=== PATIENT | male | born 1965 | race Caucasian/White ===

== ENCOUNTER 2016-12-07 16:56 | Emergency (ER) | payer SELFPAY ==
[2016-12-07 17:39] VITALS: BP 140/85; PULSE 93; RESP 18; TEMP 97.1
[2016-12-07] MEDS ORDERED: KETOROLAC 60 MG/2 ML VIAL IM STA (18:07)
[2016-12-07] MEDS ORDERED: methylPREDNISolone SOD SUCCI 125 MG/2 ML VIAL IM STA (18:07)
--- NOTE | 2016-12-07 18:07 | ED ---
Extremity Problem HPI - General Chief complaint: Extremity Problem,Nontraumatic Stated complaint: rt foot pain and swelling, spreading up to calf Time Seen by Provider: 12/07/16 17:42 Source: patient, RN notes reviewed Mode of arrival: ambulatory Limitations: no limitations - History of Present Illness Initial comments: 51 yo female presents emergency department chief complaint of right first toe pain. Patient states her last week or so he's had this redness and pain to the right toe. Patient states will get red and swollen and worse to walk on. Patient states he does have a high risk any diarrhea. Patient denies any fever chills this. Patient states it is worse at night. Patient states icing throughout the day doesn't seem to help. Patient been taking Motrin has not been improving. They were concerned it may be gout. He states he did use like an acid cream on it the did pull back the skin is not know if that made it worse or not. Patient denies any health problems. Patient states she's never had anything like this before.Patient denies any recent fever, chills, shortness of breath, chest pain, back pain, abdominal pain, nausea vomiting, numbness or tingling, dysuria or hematuria, constipation or diarrhea, headaches or visual changes, or any other current symptoms. - Related Data Previous Rx's Medication Instructions Recorded Cephalexin [Keflex] 500 mg PO Q6HR #40 cap 12/07/16 predniSONE 50 mg PO DAILY #5 tab 12/07/16 Allergies Allergy/AdvReac Type Severity Reaction Status Date / Time No Known Allergies Allergy Verified 12/07/16 17:40 Review of Systems ROS Statement: Those systems with pertinent positive or pertinent negative responses have been documented in the HPI. ROS Other: All systems not noted in ROS Statement are negative. Past Medical History Past Medical History: No Reported History History of Any Multi-Drug Resistant Organisms: None Reported Past Surgical History: Orthopedic Surgery Past Psychological History: No Psychological Hx Reported Smoking Status: Current every day smoker Past Alcohol Use History: Occasional Past Drug Use History: None Reported General Exam - General Exam Comments Initial Comments: General: The patient is awake and alert, in no distress, and does not appear acutely ill. Neck: The neck is supple, there is no tenderness or JVD. Cardiovascular: There is a regular rate and rhythm. No murmur, rub or gallop is appreciated. Respiratory: Lungs are clear to auscultation, respirations are non-labored, breath sounds are equal. No wheezes, stridor, rales, or rhonchi. Musculoskeletal: Sensation to have 2+ pulses throughout right lower extremity. Frontal motion of right ankle and right foot. Patient does have pain with range of motion of the right big toe. There does appear to be a open sore to the right toe however he states this is from trying to treat the injury. Patient states there is no other pain. Patient has full range of motion of the right ankle there is no redness or swelling noted. Neurological: CN II-XII intact, There are no obvious motor or sensory deficits. Coordination appears grossly intact. Speech is normal. Skin: Skin is warm and dry and no rashes or lesions are noted. Psychiatric: Normal mood and affect. Limitations: no limitations Course Vital Signs 12/07/16 17:32 Temperature 97.1 F L Pulse Rate 93 Respiratory 18 Rate Blood Pressure 140/85 O2 Sat by Pulse 98 Oximetry Medical Decision Making - Medical Decision Making 51-year-old male presents for right toe pain. This we discussed it could be gout versus a cellulitis. This time we discussed was her metabolic Keflex as well as steroids. We discussed continuing Motrin and return parameters and follow-up. We discussed other etiologies and all the patient's questions. He stated he understood and agreement with the plan. Discharge. Disposition Clinical Impression: Gout involving toe of right foot, Cellulitis of toe of right foot Disposition: HOME SELF-CARE Condition: Stable Instructions: Gout (ED), Cellulitis (ED) Additional Instructions: Please use medication as discussed. Please follow up with family doctor if symptoms have not improved over the next two days. Please return to the emergency room if your symptoms increase or worsen or for any other concerns. Prescriptions: Cephalexin [Keflex] 500 mg PO Q6HR #40 cap predniSONE 50 mg PO DAILY #5 tab Referrals: None,Stated [Primary Care Provider] - 1-2 days Eloise Sheikh MD [STAFF PHYSICIAN] - 1-2 days Time of Disposition: 18:06
== END 2016-12-07 18:24 | disposition home or self-care (01) ==
LOC: EC 16:56
DX: M10.9 Gout, unspecified (principal); L03.031 Cellulitis of right toe; F17.200 Nicotine dependence, unspecified, uncomplicated; Z98.890 Other specified postprocedural states
CPT/HCPCS: 99283 ×2; 96372 ×3; J2930; J1885

== ENCOUNTER 2022-01-08 10:51 | Emergency (ER) | payer BC ==
[2022-01-08] MEDS ORDERED: SODIUM CHLORIDE 0.9% 1,000 ML IV STA (11:34)
[2022-01-08 12:12] LABS: Basophils % (A) 1 %; Eosinophils # (A) 0.3 k/uL (0-0.7); Eosinophils % (A) 3 %; HCT 44.7 % (39.0-53.0); HGB 16.2 gm/dL (13.0-17.5); Lymphocytes # (A) 1.9 k/uL (1.0-4.8); Lymphocytes % (A) 23 %; MCH 35.2 pg (25.0-35.0); MCHC 36.2 g/dL (31.0-37.0); MCV 97.1 fL (80.0-100.0); Monocytes # (A) 0.3 k/uL (0-1.0); Monocytes % (A) 4 %; Neutrophils # (A) 5.8 k/uL (1.3-7.7); Neutrophils % (A) 69 %; Platelet Count 193 k/uL (150-450); RBC 4.61 m/uL (4.30-5.90); RDW 12.5 % (11.5-15.5); WBC 8.5 k/uL (3.8-10.6)
[2022-01-08 12:19] LABS: ALT 77 U/L (4-49); AST 52 U/L (17-59); African American GFR (CKD) >90 (>60 ml/min/1.73 sqM); Albumin 4.4 g/dL (3.5-5.0); Alkaline Phosphatase 74 U/L (38-126); Anion Gap 7 mmol/L; Blood Urea Nitrogen 16 mg/dL (9-20); Calcium 9.1 mg/dL (8.4-10.2); Carbon Dioxide 28 mmol/L (22-30); Chloride 107 mmol/L (98-107); Glucose 123 mg/dL (74-99); Magnesium 1.9 mg/dL (1.6-2.3); Non-African American GFR(CKD) >90 (>60 ml/min/1.73 sqM); Potassium 3.6 mmol/L (3.5-5.1); Sodium 142 mmol/L (137-145); Total Protein 7.1 g/dL (6.3-8.2)
[2022-01-08 12:20] LABS: Partial Thromboplastin Time 22.6 sec (22.0-30.0); Prothrombin Time 11.2 sec (9.0-12.0)
--- NOTE | 2022-01-08 12:28 | XR ---
EXAMINATION TYPE: XR chest 2V DATE OF EXAM: 01/08/2022 COMPARISON: Chest x-ray February 10, 2011. HISTORY: Generalized weakness. TECHNIQUE: Frontal and lateral views of the chest are obtained. FINDINGS: There is mild chronic parenchymal change bilaterally without suspicious focal air space op acity, pleural effusion, or pneumothorax seen. The cardiac silhouette size is stable and within norm al limits. Multilevel spurring in the thoracic spine. IMPRESSION: No acute process. No significant change from prior.
--- NOTE | 2022-01-08 12:33 | CT ---
EXAMINATION TYPE: CT soft tissue neck w con DATE OF EXAM: 01/08/2022 12:20 PM COMPARISON: None HISTORY: right neck mass CT DLP: 348 mGycm Automated exposure control for dose reduction was used. CONTRAST: CT scan of the neck is performed following with IV Contrast, patient injected with 100ml mL of Isovue 300. Axial images are obtained, coronal and sagittal reformatted images are reviewed. FINDINGS: There are calcifications along the pharyngeal tonsils consistent with chronic infection Airway: Some probable retained secretions present in the posterior lateral trachea. Parotid/submandibular glands: No gross abnormality seen. Carotid/Vascular Structures: Patent, vertebral arteries are codominant, 3 super aortic branch vessels are present, mild atheromatous changes are present along the common carotid arteries Osseous Structures: Multilevel spondylosis with loss of disc height, multilevel uncovertebral joint h ypertrophy, facet arthropathy, foraminal encroachment Other: No overlying marker at the site of any clinical abnormality. Some skin thickening is present, increased subcutaneous fat soft tissue into the mandible. Multiple teeth are missing. The epiglottis is unremarkable. IMPRESSION: Correlate for possible cellulitis. Degenerative disc disease. Probable retained secretio ns. No discrete mass as described.
[2022-01-08] MEDS ORDERED: MORPHINE SULFATE 4 MG/ML SYRINGE IVP STA (12:58)
[2022-01-08 13:08] VITALS: RESP 16
[2022-01-08 13:46] LABS: Appearance,Urine Clear (Clear); Bilirubin,Urine Negative (Negative); Blood,Urine Trace (Negative); Calcium Oxalate Crystals,Urine Rare /hpf; Color,Urine Light Yellow; Glucose,Urine (UA) Negative (Negative); Ketones,Urine Negative (Negative); Leukocyte Esterase,Urine Moderate (Negative); Mucus,Urine Rare /hpf; Nitrite,Urine Negative (Negative); PH, Urine 6.5 (5.0-8.0); Protein,Urine Negative (Negative); RBC,Urine 8 /hpf (0-5); Squamous Epithelial Cell,Urine <1 /hpf (0-4); Urobilinogen,Urine <2.0 mg/dL (<2.0); WBC,Urine 15 /hpf (0-5)
[2022-01-08 13:48] LABS: Specific Gravity,Urine >1.050 (1.001-1.035)
[2022-01-08] MEDS ORDERED: cefTRIAXone IN SWFI 1,000 MG/10 ML SYRINGE IVP STA (14:23)
--- NOTE | 2022-01-08 14:23 | ED ---
General Adult HPI - General Chief complaint: Weakness Stated complaint: Hand numbnes/Neck & Shoulder pain Time Seen by Provider: 01/08/22 11:22 Source: patient, RN notes reviewed Mode of arrival: ambulatory Limitations: no limitations - History of Present Illness Initial comments: 56-year-old male presents emergency Department chief complaint of recent s tabilized, infection, arm and neck pain. Patient states that he has been dealing with infection in which she was states he was diagnosed with multiple cellulitis in [place]. Patient states her since he's been having ongoing weakness, joint pain, headaches night sweats. Patient states does not feel well. Patient states she still has an area of swelling on the right service neck, right hand. He states is very weak to the touch. Patient denies any skin changes he states it was red and swollen prior. Patient does not have current PCP. Patient denies any GI symptoms. - Related Data Home Medications Medication Instructions Recorded Confirmed Ibuprofen [Advil] 800 mg PO Q6H PRN 01/08/22 01/08/22 Previous Rx's Medication Instructions Recorded Cephalexin [Keflex] 500 mg PO Q6HR #40 cap 01/08/22 Sulfamethox-Tmp 800-160Mg [Bactrim 1 each PO Q12HR #20 tab 01/08/22 Ds] Allergies Allergy/AdvReac Type Severity Reaction Status Date / Time No Known Allergies Allergy Verified 01/08/22 12:15 Review of Systems ROS Statement: Those systems with pertinent positive or pertinent negative responses have been documented in the HPI. ROS Other: All systems not noted in ROS Statement are negative. Past Medical History Past Medical History: No Reported History Additional Past Medical History / Comment(s): Cellulitis right arm. History of Any Multi-Drug Resistant Organisms: None Reported Past Surgical History: Orthopedic Surgery Past Psychological History: No Psychological Hx Reported Smoking Status: Current every day smoker Past Alcohol Use History: Occasional Past Drug Use History: None Reported General Exam Limitations: no limitations General appearance: alert, in no apparent distress Head exam: Present: atraumatic, normocephalic, normal inspection Eye exam: Present: normal appearance, PERRL, EOMI. Absent: scleral icterus, conjunctival injection, periorbital swelling ENT exam: Present: normal exam, normal oropharynx, mucous membranes moist, TM's normal bilaterally Neck exam: Present: tenderness (Mild swelling to the right side of the neck). Absent: normal inspection, meningismus, lymphadenopathy Respiratory exam: Present: normal lung sounds bilaterally. Absent: respiratory distress, wheezes, rales, rhonchi, stridor Cardiovascular Exam: Present: regular rate, normal rhythm, normal heart sounds. Absent: systolic murmur, diastolic murmur, rubs, gallop, clicks Extremities exam: Present: other (Right hand there is swelling at the metacarpal region, mild tenderness) Neurological exam: Present: alert, oriented X3, CN II-XII intact, reflexes normal. Absent: motor sensory deficit Course Vital Signs 01/08/22 01/08/22 10:55 13:06 Temperature 97 F L Pulse Rate 82 67 Respiratory 18 16 Rate Blood Pressure 145/93 164/104 O2 Sat by Pulse 98 99 Oximetry Medical Decision Making - Medical Decision Making Patient CT shows evidence of cellulitic changes there is no formation of abscess or mass patient was further treated but this may be residual aspect. Patient's urinalysis shows evidence of urinary tract infection. I did add on Lyme titers concerning for his symptoms possible underlying infectious disease issue. Patient will follow-up with Dr. Kevin patient was started on Keflex and Bactrim. - Lab Data Result diagrams: 01/08/22 11:58 01/08/22 11:58 Lab Results 01/08/22 01/08/22 01/08/22 Range/Units 11:58 11:58 11:58 WBC 8.5 (3.8-10.6) k/uL RBC 4.61 (4.30-5.90) m/uL Hgb 16.2 (13.0-17.5) gm/dL Hct 44.7 (39.0-53.0) % MCV 97.1 (80.0-100.0) fL MCH 35.2 H (25.0-35.0) pg MCHC 36.2 (31.0-37.0) g/dL RDW 12.5 (11.5-15.5) % Plt Count 193 (150-450) k/uL MPV 7.0 Neutrophils % 69 % Lymphocytes % 23 % Monocytes % 4 % Eosinophils % 3 % Basophils % 1 % Neutrophils # 5.8 (1.3-7.7) k/uL Lymphocytes # 1.9 (1.0-4.8) k/uL Monocytes # 0.3 (0-1.0) k/uL Eosinophils # 0.3 (0-0.7) k/uL Basophils # 0.0 (0-0.2) k/uL PT 11.2 (9.0-12.0) sec INR 1.0 (<1.2) APTT 22.6 (22.0-30.0) sec Sodium 142 (137-145) mmol/L Potassium 3.6 (3.5-5.1) mmol/L Chloride 107 (98-107) mmol/L Carbon Dioxide 28 (22-30) mmol/L Anion Gap 7 mmol/L BUN 16 (9-20) mg/dL Creatinine 0.60 L (0.66-1.25) mg/dL Est GFR (CKD-EPI)AfAm >90 (>60 ml/min/1.73 sqM) Est GFR (CKD-EPI)NonAf >90 (>60 ml/min/1.73 sqM) Glucose 123 H (74-99) mg/dL Plasma Lactic Acid Tye (0.7-2.0) mmol/L Calcium 9.1 (8.4-10.2) mg/dL Magnesium 1.9 (1.6-2.3) mg/dL Total Bilirubin 1.0 (0.2-1.3) mg/dL AST 52 (17-59) U/L ALT 77 H (4-49) U/L Alkaline Phosphatase 74 (38-126) U/L Troponin I (0.000-0.034) ng/mL Total Protein 7.1 (6.3-8.2) g/dL Albumin 4.4 (3.5-5.0) g/dL Urine Color Urine Appearance (Clear) Urine pH (5.0-8.0) Ur Specific [place] (1.001-1.035) Urine Protein (Negative) Urine Glucose (UA) (Negative) Urine Ketones (Negative) Urine Blood (Negative) Urine Nitrite (Negative) Urine Bilirubin (Negative) Urine Urobilinogen (<2.0) mg/dL Ur Leukocyte Esterase (Negative) Urine RBC (0-5) /hpf Urine WBC (0-5) /hpf Ur Squamous Epith Cells (0-4) /hpf Calcium Oxalate Crystal (None) /hpf Urine Mucus (None) /hpf Heterophile Antibody (Negative) 01/08/22 01/08/22 01/08/22 Range/Units 11:58 11:58 11:58 WBC (3.8-10.6) k/uL RBC (4.30-5.90) m/uL Hgb (13.0-17.5) gm/dL Hct (39.0-53.0) % MCV (80.0-100.0) fL MCH (25.0-35.0) pg MCHC (31.0-37.0) g/dL RDW (11.5-15.5) % Plt Count (150-450) k/uL MPV Neutrophils % % Lymphocytes % % Monocytes % % Eosinophils % % Basophils % % Neutrophils # (1.3-7.7) k/uL Lymphocytes # (1.0-4.8) k/uL Monocytes # (0-1.0) k/uL Eosinophils # (0-0.7) k/uL Basophils # (0-0.2) k/uL PT (9.0-12.0) sec INR (<1.2) APTT (22.0-30.0) sec Sodium (137-145) mmol/L Potassium (3.5-5.1) mmol/L Chloride (98-107) mmol/L Carbon Dioxide (22-30) mmol/L Anion Gap mmol/L BUN (9-20) mg/dL Creatinine (0.66-1.25) mg/dL Est GFR (CKD-EPI)AfAm (>60 ml/min/1.73 sqM) Est GFR (CKD-EPI)NonAf (>60 ml/min/1.73 sqM) Glucose (74-99) mg/dL Plasma Lactic Acid Tye 1.8 (0.7-2.0) mmol/L Calcium (8.4-10.2) mg/dL Magnesium (1.6-2.3) mg/dL Total Bilirubin (0.2-1.3) mg/dL AST (17-59) U/L ALT (4-49) U/L Alkaline Phosphatase (38-126) U/L Troponin I <0.012 (0.000-0.034) ng/mL Total Protein (6.3-8.2) g/dL Albumin (3.5-5.0) g/dL Urine Color Urine Appearance (Clear) Urine pH (5.0-8.0) Ur Specific [place] (1.001-1.035) Urine Protein (Negative) Urine Glucose (UA) (Negative) Urine Ketones (Negative) Urine Blood (Negative) Urine Nitrite (Negative) Urine Bilirubin (Negative) Urine Urobilinogen (<2.0) mg/dL Ur Leukocyte Esterase (Negative) Urine RBC (0-5) /hpf Urine WBC (0-5) /hpf Ur Squamous Epith Cells (0-4) /hpf Calcium Oxalate Crystal (None) /hpf Urine Mucus (None) /hpf Heterophile Antibody Negative (Negative) 01/08/22 Range/Units 13:35 WBC (3.8-10.6) k/uL RBC (4.30-5.90) m/uL Hgb (13.0-17.5) gm/dL Hct (39.0-53.0) % MCV (80.0-100.0) fL MCH (25.0-35.0) pg MCHC (31.0-37.0) g/dL RDW (11.5-15.5) % Plt Count (150-450) k/uL MPV Neutrophils % % Lymphocytes % % Monocytes % % Eosinophils % % Basophils % % Neutrophils # (1.3-7.7) k/uL Lymphocytes # (1.0-4.8) k/uL Monocytes # (0-1.0) k/uL Eosinophils # (0-0.7) k/uL Basophils # (0-0.2) k/uL PT (9.0-12.0) sec INR (<1.2) APTT (22.0-30.0) sec Sodium (137-145) mmol/L Potassium (3.5-5.1) mmol/L Chloride (98-107) mmol/L Carbon Dioxide (22-30) mmol/L Anion Gap mmol/L BUN (9-20) mg/dL Creatinine (0.66-1.25) mg/dL Est GFR (CKD-EPI)AfAm (>60 ml/min/1.73 sqM) Est GFR (CKD-EPI)NonAf (>60 ml/min/1.73 sqM) Glucose (74-99) mg/dL Plasma Lactic Acid Tye (0.7-2.0) mmol/L Calcium (8.4-10.2) mg/dL Magnesium (1.6-2.3) mg/dL Total Bilirubin (0.2-1.3) mg/dL AST (17-59) U/L ALT (4-49) U/L Alkaline Phosphatase (38-126) U/L Troponin I (0.000-0.034) ng/mL Total Protein (6.3-8.2) g/dL Albumin (3.5-5.0) g/dL Urine Color Light Yellow Urine Appearance Clear (Clear) Urine pH 6.5 (5.0-8.0) Ur Specific [place] >1.050 H (1.001-1.035) Urine Protein Negative (Negative) Urine Glucose (UA) Negative (Negative) Urine Ketones Negative (Negative) Urine Blood Trace H (Negative) Urine Nitrite Negative (Negative) Urine Bilirubin Negative (Negative) Urine Urobilinogen <2.0 (<2.0) mg/dL Ur Leukocyte Esterase Moderate H (Negative) Urine RBC 8 H (0-5) /hpf Urine WBC 15 H (0-5) /hpf Ur Squamous Epith Cells <1 (0-4) /hpf Calcium Oxalate Crystal Rare H (None) /hpf Urine Mucus Rare H (None) /hpf Heterophile Antibody (Negative) Disposition Clinical Impression: Cellulitis, Urinary tract infection, Weakness Disposition: HOME SELF-CARE Condition: Stable Instructions (If sedation given, give patient instructions): Cellulitis (ED), Urinary Tract Infection in Men (ED) Additional Instructions: Please return to the Emergency Department if symptoms worsen or any other concerns. Prescriptions: Sulfamethox-Tmp 800-160Mg [Bactrim Ds] 1 each PO Q12HR #20 tab Cephalexin [Keflex] 500 mg PO Q6HR #40 cap Is patient prescribed a controlled substance at d/c from ED?: No Referrals: None,Stated [Primary Care Provider] - 1-2 days Leon Dailey MD [STAFF PHYSICIAN] - 1-2 days Trish Peters MD [REFERRING] - 1-2 days Time of Disposition: 14:22
[2022-01-08] MEDS ORDERED: Acetaminophen-Codeine 300-30mg TAB PO STA (14:48)
[2022-01-08] MEDS ORDERED: ACET/COD 300 MG/30 MG STARTER PACK 6 TAB BTL PO STA (14:53)
[2022-01-08 15:06] VITALS: BP 150/98; PULSE 88; TEMP 98
== END 2022-01-08 15:05 | disposition home or self-care (01) ==
LOC: EC 10:51
DX: N39.0 Urinary tract infection, site not specified (principal); L03.113 Cellulitis of right upper limb; R53.1 Weakness; F17.200 Nicotine dependence, unspecified, uncomplicated
CPT/HCPCS: 36415; 93005; 80053; 83605; 83735; 84484; 85025; 85610; 85730; 86308; 81001; 86618; 87086; 71046; 70491; 99285; 96374; 96375; 96361; J2270; J0696; Q9967

== ENCOUNTER 2022-01-18 08:42 | Emergency (ER) | payer BC ==
[2022-01-18 09:05] VITALS: RESP 20; TEMP 98.5
[2022-01-18] MEDS ORDERED: HYDROcodone/APAP 5-325MG 1 EACH TAB PO STA (10:00)
--- NOTE | 2022-01-18 10:31 | CT ---
EXAMINATION TYPE: CT brain cspine wo con DATE OF EXAM: 01/18/2022 COMPARISON: None HISTORY: tingling Rt arm and fingers, shoulder pain, recent cellulitis of neck CT DLP: 1463.9 mGycm Automated exposure control for dose reduction was used. TECHNIQUE: CT scan of the head and cervical spine are performed without contrast. FINDINGS: There is no acute intracranial hemorrhage, mass effect, or midline shift identified. The ventricles and sulci are within normal limits in size. The globes are intact and the visualized sin uses are clear. Cervical spine is visualized in its entirety from C1 through upper thoracic levels and demonstrates s atisfactory alignment without evidence of acute fracture or dislocation. Prevertebral soft tissue ap pears within normal limits. The C1-C2 articulation is unremarkable. There is advanced degenerative disc disease and osteoarthritic change of facet joints and uncovertebral joints in the mid and lower cervical spine. There is moderate bony neural foraminal encroachment at the C6-7 level on the right a nd at the C3-4 level on the right. IMPRESSION: 1. There is no acute fracture or dislocation evident in the cervical spine. Advanced degenerative marj nges in the mid lower cervical spine. Multilevel bony neural foraminal encroachment on the right as d escribed above. 2. No acute intracranial hemorrhage, mass effect, or midline shift is seen.
--- NOTE | 2022-01-18 10:33 | XR ---
Right clavicle. HISTORY: Pain COMPARISON: None. TECHNIQUE: 2 views right clavicle were obtained. The right clavicle is intact without fracture, cortical disruption or periosteal reaction. There is mild osteoarthritic change of the right AC joint and glenohumeral joint.. IMPRESSION: 1. Mild degenerative change of the right AC joint. 2. No fracture or focal abnormality of the right clavicle.
--- NOTE | 2022-01-18 10:36 | XR ---
Right shoulder. HISTORY: Pain COMPARISON: None. TECHNIQUE: 3 views of the right shoulder were obtained. FINDINGS: There is no fracture, dislocation, or intraosseous abnormality. There is mild osteoarthritic change of the right AC joint and glenohumeral joint. The soft tissues are normal without radiopaque foreign body or abnormal soft tissue calcification. IMPRESSION: 1. No evidence of fracture or dislocation. 2. Mild osteoarthritic change of the right AC joint and right glenohumeral joint.
[2022-01-18 10:46] LABS: Glucose,Whole Blood 133 mg/dL (75-99)
--- NOTE | 2022-01-18 11:36 | ED ---
General Adult HPI - General Chief complaint: Extremity Problem,Nontraumatic Stated complaint: shoulder pain Time Seen by Provider: 01/18/22 09:42 Source: patient, RN notes reviewed, old records reviewed Mode of arrival: ambulatory Limitations: no limitations - History of Present Illness Initial comments: She is a 57 from male who presents with department with 2 primary complaints. One is a somewhat wide-based gait which is been ongoing for the last 1-2 weeks. He also was recently treated for cellulitis in the right neck. Has been having right shoulder pain as well as shooting pain from his right neck down towards his fingertips on the right side. Has not yet followed up with outpatient physicians. As for reevaluation today due to the pain in his right shoulder primarily. Denies any fevers, chills, sick contacts. Denies any neck stiffness. Denies any confusion. Patient's is at bedside. Endorses this. Denies any other acute complaints including chest pain, shortness breath, abdominal pain, nausea, vomiting. Did remotely have a laceration over the dorsal aspect of his right hand which is rinsed out with contaminated water at home which they believe is likely the source of his infection his neck. Presents over concern for continued shoulder pain. States his infection which was erythematous is gone. Is being worked up for Lyme disease outpatient. Presents for further evaluation. Is also endorsing bilateral fingertip numbness which is somewhat chronic. It has been ongoing for a longer period of time compared to the rest of his symptoms. - Related Data Home Medications Medication Instructions Recorded Confirmed Ibuprofen [Advil] 800 mg PO Q6H PRN 01/08/22 01/08/22 Previous Rx's Medication Instructions Recorded Cephalexin [Keflex] 500 mg PO Q6HR #40 cap 01/08/22 Sulfamethox-Tmp 800-160Mg [Bactrim 1 each PO Q12HR #20 tab 01/08/22 Ds] Gabapentin 300 mg PO BID 3 Days #6 cap 01/18/22 HYDROcodone/APAP 5-325MG [[place] 5] 1 each PO Q6HR PRN 3 Days #12 tab 01/18/22 Allergies Allergy/AdvReac Type Severity Reaction Status Date / Time No Known Allergies Allergy Verified 01/18/22 09:06 Review of Systems ROS Statement: Those systems with pertinent positive or pertinent negative responses have been documented in the HPI. ROS Other: All systems not noted in ROS Statement are negative. Past Medical History Past Medical History: No Reported History Additional Past Medical History / Comment(s): Cellulitis right arm. History of Any Multi-Drug Resistant Organisms: None Reported Past Surgical History: Orthopedic Surgery Past Psychological History: No Psychological Hx Reported Smoking Status: Current every day smoker Past Alcohol Use History: Occasional Past Drug Use History: None Reported General Exam - General Exam Comments Initial Comments: General: Appears in no acute distress. HEAD: Normal with no signs of head trauma. EYES: PERRLA, EOMI, conjunctiva normal, no discharge. Pupils are 3 mm and equal bilaterally. ENT: Hearing grossly intact, normal oropharynx. NECK: Point tenderness to palpation over the right before meals joint. Also has some mild tenderness along the trapezius muscle of the right. Pain appears to be radicular in nature. RESPIRATORY: Clear breath sounds bilaterally. No wheezes, rales, or rhonchi. C/V: Regular rate and rhythm. S1 and S2 auscultated, no edema, peripheral pulses 2+ and intact throughout ABD: Abd is soft, nontender, nondistended EXT: Normal range of motion, no obvious deformity SKIN: No rashes or lesions observed on exposed skin. NEURO: Alert and oriented x 4. Cranial nerves II-XII intact. No focal sensory or strength deficits. Patient is able to ambulate. Does have a mild wide gait. No sensory deficits except his fingertips which seems to be somewhat chronic. NIH is 0. Cerebellar function appears to be intact as he is normal finger-nose testing, normal pekq-np-hakp testing. No dysdiadochokinesia. Limitations: no limitations Course Vital Signs 01/18/22 01/18/22 09:03 12:02 Temperature 98.5 F Pulse Rate 83 86 Respiratory 20 20 Rate Blood Pressure 129/89 139/90 O2 Sat by Pulse 96 98 Oximetry Medical Decision Making - Medical Decision Making Based the patient's presentation and physical exam, is a normal neurological exam except for the slightly off gait as well as the somewhat chronic fingertip numbness. Remainder the patient's cerebellar function appears to be within normal limits based on neurological testing. He is appears to be having radicular pain in the right shoulder as well as before meals joint tenderness. I discussed at length with the patient's as well as the patient and would like to obtain musculoskeletal imaging of the right shoulder as well as cervical spine and brain. There were negative and this plan. He will be symptomatically treated with pain medications. He has planned follow-up with his PCP this week as well as infectious disease. Shoulder and clavicular x-ray revealed a degenerative change of the right before meals joint with no obvious fracture. Head and cervical spine CT shows degenerative disc disease of the neck. No acute intracranial process. Findings appear to be worse on the right. I discussed with the patient as well as his at length. He may require an MRI at some point, but I did recommend that he continue follow-up with infectious disease in his PCP. May warrant a neurological examination but I do not believe that this requires urgent admission at this time for further acute workup. He expressed understanding was in agreement. He has been dealing with symptoms. We'll provide him with follow-up neurologist. He will follow up with infectious disease doctor as well. His imaging findings are consistent with rad iculopathy of the right arm and neck. Expressed understanding. Will be given Jefferson for pain control at home. Recommend close follow-up. Decision was made jointly with the patient's family and the patient as well as myself. I will provide the patient with a prescription for Jefferson 5. I instructed the patient to follow up with their PCP in the next 3 days. I explained that the patient should return to the emergency department if they experience any worsening symptoms. Strict return precautions were discussed with the patient. The patient expressed understanding of these instructions. I answered all questions that the patient had. The patient was discharged home in fair condition with their prescriptions and follow up information. - Lab Data Lab Results 01/18/22 Range/Units 10:44 POC Glucose (mg/dL) 133 H (75-99) mg/dL POC Glu Channel Cementer ID Bernardino Conner Disposition Clinical Impression: Radiculopathy, Shoulder pain Disposition: HOME SELF-CARE Condition: Good Prescriptions: Gabapentin 300 mg PO BID 3 Days #6 cap HYDROcodone/APAP 5-325MG [[place] 5] 1 each PO Q6HR PRN 3 Days #12 tab PRN Reason: Pain Is patient prescribed a controlled substance at d/c from ED?: Yes When asked, does pt state using other controlled substances?: No If prescribed controlled substance>3 days was MAPS reviewed?: Prescribed <3 Days If opioid is for acute pain is fill amount 7 days or less?: Yes Referrals: Roland Squires DO [Primary Care Provider] - 1-2 days Guanakito Fowler MD [STAFF PHYSICIAN] - 1-2 days Ching Marie MD [Medical Doctor] - 1-2 days Time of Disposition: 11:10
[2022-01-18 12:03] VITALS: BP 139/90; PULSE 86
== END 2022-01-18 12:03 | disposition home or self-care (01) ==
LOC: EC 08:42
DX: M54.12 Radiculopathy, cervical region (principal); F17.200 Nicotine dependence, unspecified, uncomplicated
CPT/HCPCS: 36415; 70450; 72125; 99284

== ENCOUNTER 2022-01-21 09:37 | Emergency (ER) | payer BC ==
[2022-01-21] MEDS ORDERED: DOXYCYCLINE 100 MG CAP PO STA (10:55)
[2022-01-21] MEDS ORDERED: Acetaminophen-Codeine 300-30mg TAB PO STA (11:07)
--- NOTE | 2022-01-21 11:17 | ED ---
Extremity Problem HPI - General Chief complaint: Extremity Problem,Nontraumatic Stated complaint: Hand Numbness,Sore Neck Time Seen by Provider: 01/21/22 10:01 Source: patient Mode of arrival: ambulatory Limitations: no limitations - History of Present Illness Initial comments: Patient is a 57-year-old male presenting with chief complaint of bilateral hand numbness and shoulder pain. She states that he is dealing with paresthesia and joint pain for the last month. He has been seen here on 2 different occasions for the symptoms. During those visits he received x-rays and CTs of the affected areas, both of which were negative. Patient states he was provided with a neurologist follow-up with, however he is unable to get in for 2-3 months. He states that the numbness and tingling in pain has not gotten any worse, however it has not improved. Patient has been taking gabapentin and [place] as needed for pain control. Denies any chest pain, shortness of breath, palpitations, weakness, abdominal pain, nausea, vomiting, rash, vision or hearing changes, headache, neck pain or stiffness, fever, chills. - Related Data Home Medications Medication Instructions Recorded Confirmed Ibuprofen [Advil] 800 mg PO Q6H PRN 01/08/22 01/08/22 Previous Rx's Medication Instructions Recorded Cephalexin [Keflex] 500 mg PO Q6HR #40 cap 01/08/22 Sulfamethox-Tmp 800-160Mg [Bactrim 1 each PO Q12HR #20 tab 01/08/22 Ds] Gabapentin 300 mg PO BID 3 Days #6 cap 01/18/22 HYDROcodone/APAP 5-325MG [[place] 5] 1 each PO Q6HR PRN 3 Days #12 tab 01/18/22 Doxycycline [Vibramycin] 100 mg PO BID 21 Days #42 capsule 01/21/22 Allergies Allergy/AdvReac Type Severity Reaction Status Date / Time No Known Allergies Allergy Verified 01/18/22 09:06 Review of Systems ROS Statement: Those systems with pertinent positive or pertinent negative responses have been documented in the HPI. ROS Other: All systems not noted in ROS Statement are negative. Past Medical History Past Medical History: No Reported History Additional Past Medical History / Comment(s): Cellulitis right arm. History of Any Multi-Drug Resistant Organisms: None Reported Past Surgical History: Orthopedic Surgery Past Psychological History: No Psychological Hx Reported Smoking Status: Current every day smoker Past Alcohol Use History: Occasional Past Drug Use History: None Reported General Exam Limitations: no limitations General appearance: alert, in no apparent distress Head exam: Present: atraumatic, normocephalic, normal inspection Eye exam: Present: normal appearance, EOMI. Absent: scleral icterus Neck exam: Present: normal inspection. Absent: tenderness Respiratory exam: Present: normal lung sounds bilaterally. Absent: respiratory distress, wheezes, rales, rhonchi, stridor Cardiovascular Exam: Present: regular rate, normal rhythm, normal heart sounds. Absent: systolic murmur, diastolic murmur, rubs, gallop, clicks Extremities exam: Present: normal inspection, full ROM, normal capillary refill. Absent: tenderness, joint swelling Back exam: Present: normal inspection, full ROM, tenderness (Near right shoulder), muscle spasm. Absent: vertebral tenderness Neurological exam: Present: alert, oriented X3, CN II-XII intact Psychiatric exam: Present: normal affect, normal mood Skin exam: Present: warm, dry, intact, normal color. Absent: rash Course Vital Signs 01/21/22 01/21/22 09:41 11:36 Temperature 98.3 F 98.6 F Pulse Rate 70 89 Respiratory 16 18 Rate Blood Pressure 143/93 138/78 O2 Sat by Pulse 97 98 Oximetry Medical Decision Making - Medical Decision Making Patient is a 57-year-old male presenting with chief complaint of bilateral hand paresthesia and joint pain. He also admits to fatigue. States that the symptoms have been ongoing for the last month. Patient has been seen here twice for these issues, he has received x-rays and CTs during these visits, all of which were negative. Patient states his symptoms are have not gotten worse, however they are not better. On his first visit here he received testing for Lyme disease, however at his previous visit results were not back. At this time results are back and are positive for Lyme disease. This is likely the cause of his symptoms. I provided him treatment with doxycycline 100 mg twice a day 21 days. I instructed him to follow up with his PCP and neurologist, neurology referral was provided. Infectious disease referral and follow-up was also provided and encouraged as well. Educated on return parameters and alarm symptoms. Answered all questions. Patient conveyed verbal understanding and agreed to the plan. Disposition Clinical Impression: Lyme disease Disposition: HOME SELF-CARE Condition: Good Instructions (If sedation given, give patient instructions): Doxycycline (By mouth), Lyme Disease (ED) Additional Instructions: History of primary care provider, infectious disease, and neurology. Take medication as prescribed. Report back to ER with any worsening symptoms. Prescriptions: Doxycycline [Vibramycin] 100 mg PO BID 21 Days #42 capsule Is patient prescribed a controlled substance at d/c from ED?: No Referrals: None,Stated [Primary Care Provider] - 1-2 days Guanakito Ellison MD [STAFF PHYSICIAN] - 1-2 days Leon Dailey MD [STAFF PHYSICIAN] - 1-2 days Time of Disposition: 11:18
[2022-01-21] MEDS ORDERED: ACET/COD 300 MG/30 MG STARTER PACK 6 TAB BTL PO STA (11:31)
[2022-01-21 11:37] VITALS: BP 138/78; PULSE 89; RESP 18; TEMP 98.6
== END 2022-01-21 11:36 | disposition home or self-care (01) ==
LOC: EC 09:37
DX: A69.20 Lyme disease, unspecified (principal); F17.200 Nicotine dependence, unspecified, uncomplicated

== ENCOUNTER → 2022-02-11 | Outpatient (CLI) | payer BC ==
--- NOTE | 2022-02-11 10:00 | US ---
EXAMINATION TYPE: US liver DATE OF EXAM: 02/11/2022 COMPARISON: NONE CLINICAL HISTORY: R74.01 ELEVATED LIVER TRANSAMINASE LEVELS. EXAM MEASUREMENTS: Liver Length: 17.3 cm Gallbladder Wall: .2 cm CBD: .3 cm Right Kidney: 11.9 x 4.9 x 5.1 cm Pancreas: wnl as seen, tail not well vis Liver: Coarse echotexture Gallbladder: No stones seen Evidence for sonographic Dhillon's sign: No CBD: wnl Right Kidney: No hydronephrosis or masses seen IMPRESSION: There is coarsened echo pattern which can be associated with hepatic steatosis or hepatoc ellular disease including hepatitis correlate clinically.
== END | disposition home or self-care (01) ==
LOC: RADUSWWP 08:58
PROVIDERS: ATTEND Family Medicine
DX: R74.01 Elevation of levels of liver transaminase levels (principal)
CPT/HCPCS: 76705

== ENCOUNTER → 2022-02-14 | Outpatient (CLI) | payer BC ==
--- NOTE | 2022-02-14 17:22 | MR ---
EXAMINATION TYPE: MR brain/cspine wo DATE OF EXAM: 02/14/2022 COMPARISON: None HISTORY: Cervical disc degeneration, storke, abnormal gait, right shoulder and neck pain, numbness in hands Multiplanar multiecho imaging of the brain and cervical spine without contrast. Ventricles have normal size. There is no mass effect or midline shift. Diffusion images show no sign of acute infarct. The brainstem is intact. There is a 5 mm area of increased signal in the left poste rior temporal lobe white matter on the T2 and FLAIR images. No evidence of posterior fossa mass. Cere bellum appears normal. Corpus callosum is intact. Sella turcica appears normal. No evidence of orbital mass. There is metal artifact at the left orbit. The cervical vertebra show mild straightening. There is degenerative disc space narrowing from C3 to C7 with spurring of the endplates. There are mild posterior disc herniations from C3 to C7. There is small spinal canal and multilevel cervical spinal stenosis. Canal measures 5 mm at C4-5. Canal measur es slightly less than 5 mm at C5-6. There is small area of increased signal within the cervical spina l cord at C5-6 consistent with edema and myelomalacia. Canal measures 6 mm at C3-4. IMPRESSION: Single small white matter high signal focus in the left posterior temporal lobe of uncertain and doub tful significance. Otherwise negative MR scan of the brain. Multilevel cervical spondylotic changes and multilevel moderate cervical spinal stenosis with posteri or disc herniation seen from C3 to C7. There is some myelomalacia at C5-6.
== END | disposition home or self-care (01) ==
LOC: RADMRIMAIN 09:50
PROVIDERS: ATTEND Nurse Practitioner Family
DX: M48.02 Spinal stenosis, cervical region (principal); M47.812 Spondylosis without myelopathy or radiculopathy, cervical region; G95.89 Other specified diseases of spinal cord
CPT/HCPCS: 70551; 72141

== ENCOUNTER → 2022-02-18 | Outpatient (CLI) | payer BC ==
--- NOTE | 2022-02-19 07:11 | MR ---
EXAMINATION TYPE: MR liver wo con DATE OF EXAM: 02/18/2022 COMPARISON: None HISTORY: Abnormal US Multiplanar multi echo imaging of the liver without contrast. FINDINGS: There is no sign of pleural effusion. There is no sign of ascites. No discrete liver mass. There is s ome patchy heterogeneity in the liver consistent with variable fatty replacement. The bile ducts are not dilated. Kidneys have normal size and contour. No hydronephrosis. The gallbladder appears normal. No evidence of pancreatic mass. Pancreatic duct is not dilated. IMPRESSION: There is evidence for some mild patchy fatty infiltration of the liver. Otherwise negative exam. No d iscrete liver mass.
== END | disposition home or self-care (01) ==
LOC: RADMRIMAIN 14:32
PROVIDERS: ATTEND Nurse Practitioner Family
DX: K76.0 Fatty (change of) liver, not elsewhere classified (principal)
CPT/HCPCS: 74181

== ENCOUNTER → 2022-03-03 | Outpatient (CLI) | payer BC ==
--- NOTE | 2022-03-03 14:09 | XR ---
EXAMINATION TYPE: XR chest 2V DATE OF EXAM: 03/03/2022 COMPARISON: Chest x-ray 01/08/2022 HISTORY: Z01.818 TECHNIQUE: Frontal and lateral views of the chest are obtained. FINDINGS: There is no focal air space opacity, pleural effusion, or pneumothorax seen. The cardiac silhouette size is within normal limits. The osseous structures are intact, there is thoracic spond ylosis. IMPRESSION: No acute cardiopulmonary process.
[2022-03-03 14:10] LABS: INR 1.1 (<1.2); Partial Thromboplastin Time 24.2 sec (22.0-30.0); Prothrombin Time 11.5 sec (9.0-12.0)
[2022-03-03 17:31] LABS: Basophils # (A) 0.03 X 10*3/uL (0.00-0.10); Basophils % (A) 0.5 %; Eosinophils # (A) 0.26 X 10*3/uL (0.04-0.35); HCT 45.3 % (39.6-50.0); HGB 15.9 g/dL (13.0-17.0); Immature Grans, Automated 0.5 %; Lymphocytes # (A) 1.91 X 10*3/uL (0.90-5.00); Lymphocytes % (A) 29.7 %; MCH 33.3 pg (27.0-32.0); MCHC 35.1 g/dL (32.0-37.0); MCV 94.8 fL (80.0-97.0); Monocytes # (A) 0.46 X 10*3/uL (0.20-1.00); Monocytes % (A) 7.2 %; NRBC Per 100 WBC 0 /100 WBCS (0.0-0.0); Neutrophils # (A) 3.74 X 10*3/uL (1.80-7.70); Neutrophils % (A) 58.1 %; Platelet Count 164 X 10*3/uL (140-440); RBC 4.78 X 10*6/uL (4.40-5.60); RDW 12.7 % (11.5-14.5); WBC 6.43 X 10*3/uL (4.50-10.00)
[2022-03-03 17:45] LABS: African American GFR (CKD) 130.3 (60.0-200.0); Albumin 4.9 g/dL (3.8-4.9); Albumin/Globulin Ratio 2.33 (1.60-3.17); Anion Gap 13.8 mmol/L (10.00-18.00); BUN/Creat Ratio 28.67 Ratio (12.00-20.00); Blood Urea Nitrogen 17.2 mg/dL (9.0-27.0); Calcium 9.6 mg/dL (8.7-10.3); Carbon Dioxide 23.2 mmol/L (20.0-27.5); Globulin 2.1 g/dL (1.6-3.3); Non-African American GFR(CKD) 112.4 (60.0-200.0); Potassium 3.8 mmol/L (3.5-5.5); Total Bilirubin 1.4 mg/dL (0.30-1.20)
[2022-03-03 19:52] LABS: Appearance,Urine Turbid (Clear); Bacteria,Urine None Seen /HPF (None Seen); Bilirubin,Urine Small (Negative); Blood,Urine Negative (Negative); Calcium Oxalate Crystals,Urine Present /LPF (None Seen); Color,Urine Orange (Yellow); Ketones,Urine Trace mg/dL (Negative); Nitrite,Urine Negative (Negative); PH, Urine 5.5 (5.0-8.0); Specific Gravity,Urine 1.026 (1.001-1.030)
== END | disposition home or self-care (01) ==
LOC: LABPAT 13:04
PROVIDERS: ATTEND Orthopaedic Surgery Orthopaedic Surgery of the Spine
DX: Z01.818 Encounter for other preprocedural examination (principal); G95.9 Disease of spinal cord, unspecified
CPT/HCPCS: 71046; 80053; 81001; 85025; 85610; 85730; 86850; 86900; 86901

== ENCOUNTER 2022-03-11 10:45 | Observation (INO) | payer BC ==
[2022-03-10 09:37] VITALS: BMI 27.6
[~2022-03-11 10:45] MED LIST: DEXAMETHASONE SOD PHOSPHATE 4 MG/ML 1 ML VIAL IV ONE; ONDANSETRON 4 MG/2 ML VIAL IVP ONE; ceFAZolin 1,000 MG in SODIUM CHLORIDE 0.9% IRRIGATIO 1,000 ML IRRIGATION PRN
[2022-03-11] MEDS: LACTATED RINGERS 1,000 ML IV SCH (11:22)
[2022-03-11] MEDS ORDERED: MIDAZOLAM 2 MG/2 ML VIAL ONE (13:00)
[2022-03-11] MEDS ORDERED: SUCCINYLCHOLINE CHLORIDE 100 MG/5 ML SYR IV ONE (13:00)
[2022-03-11] MEDS ORDERED: fentaNYL (PF) 50 MCG/ML 2 ML AMP ONE (13:00)
[2022-03-11] MEDS ORDERED: KETAMINE 10 MG/ML 20 ML VIAL ONE (13:00)
[2022-03-11] MEDS ORDERED: LIDOCAINE 2% INJ 20 MG/ML (2 ML VIAL) ONE (13:00)
[2022-03-11] MEDS ORDERED: ROCURONIUM 10 MG/ML (5 ML VIAL) IV ONE (13:00)
[2022-03-11] MEDS ORDERED: PHENYLEPHRINE-0.9% NACL SYG 1,000 MCG/10 ML SYRINGE ONE (13:00)
[2022-03-11] MEDS ORDERED: GLYCOPYRROLATE 0.2 MG/ML 2 ML VIAL ONE (13:00)
[2022-03-11] MEDS ORDERED: PROPOFOL 10 MG/ML 20 ML VIAL IV ONE (13:00)
[2022-03-11] MEDS ORDERED: DEXAMETHASONE SOD PHOSPHATE 10 MG/ML 1 ML VIAL ONE (13:00)
[2022-03-11] MEDS ORDERED: NEOSTIGMINE 1 MG/ML 10 ML VIAL ONE (13:00)
[2022-03-11] MEDS ORDERED: LIDOCAINE 0.5%-EPI 1:200,000 50 ML VIAL SQ ONE (13:06)
[2022-03-11] MEDS ORDERED: THROMBIN (BOVINE) 5,000 UNIT VIAL TOPICAL ONE (13:06)
[2022-03-11] MEDS ORDERED: GELATIN SPONGE,ABSORB (LARGE) 1 EACH SPONGE TOPICAL ONE (13:06)
[2022-03-11] MEDS ORDERED: LACTATED RINGERS 1,000 ML IV ONE ×3 (13:30→15:58)
--- NOTE | 2022-03-11 14:07 | XR ---
EXAMINATION TYPE: XR cervical spine 1V DATE OF EXAM: 03/11/2022 COMPARISON: NONE HISTORY: Needle placement TECHNIQUE: One view submitted FINDINGS: Hypertrophic degenerative changes involving the cervical spine. ET tube no metallic instrum ent overlying the anterior margin of the upper margin of the C6 vertebral segment. IMPRESSION: Needle placement
[2022-03-11] MEDS ORDERED: HYDROmorphone 0.5 MG/0.5 ML SYRINGE IVP PRN (16:27)
[2022-03-11] MEDS ORDERED: CYCLOBENZAPRINE 10 MG TAB PO PRN (16:27)
[2022-03-11] MEDS ORDERED: ONDANSETRON 4 MG/2 ML VIAL IVP PRN (16:27)
[2022-03-11] MEDS ORDERED: BENZOCAINE/MENTHOL LOZENG 1 EACH LOZENGE MUCOUS MEM PRN (16:27)
--- NOTE | 2022-03-11 16:36 | P.OP ---
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, myelomalacia, herniated nucleus pulposis C3 4 C4 5 C5 6 C6 7 Postoperative Diagnosis: Same Anesthesia: GETA Pathology: none sent Condition: stable Description of Procedure: BRIEF OPERATIVE NOTE Preoperative Diagnosis:Cervical myelopathy, severe cervical stenosis C3 4 C4 5 C5 6 C6 7, degenerative disc disease, upper extremity weakness, upper extremity myeloradiculopathy, 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 Armas Backhaul Driver: Kyle Jensen is present throughout the entire the case persistence during positioning, dissection, exposure, visualization, and all crucial elements of the case as well as closure. Anesthesia: General anesthesia Estimated blood loss: Approximately 100 mL Complications: None apparent Components implanted: K2M striker Manteca anterior cervical plate system with 3.5 and 4.0 screws and Vikos interbody allograft bone graft with 1 mL of DBX bone putty Disposition: To recovery room in good stable condition. OPERATIVE INDICATIONS The patient has had severe issues in their neck and upper extremities. He had had an incident and had significant worsening of his neck and his upper extremities a few months ago. He had initial conservative treatment. Chelle luation of his shoulder and his upper extremities was not having improvement. He is referred to us in terms of his cervical spine and was found have significant changes at his cervical spine which correlated well with his neck and upper extremity symptoms. He is having evidence of cervical myelopathy with weakness at his upper extremities changes in his gait changes in his dexterity at his arms. He is found have severe stenosis at multiple levels in his cervical spine which correlated with this. He is not having any benefit with his conservative treatment and we recommended early surgical intervention. The patient has been through conservative treatment. We discussed various treatment options including surgery, and the patient wishes to proceed with surgery We discussed the risk, patient's alternatives and benefits of surgery including but not limited to, risk of bleeding risk of infection, risk of need for further surgery, risk of decreased, loss of motion, muscle function, malunion nonunion, hardware failure, nerve damage, paralysis, heart attack, and . OPERATIVE SUMMARY After discussing all the risks, patient alternatives and benefits at length, the patient elected to proceed with surgical intervention, signed informed consent, and presented for their procedure. The patient was seen and examined in the preoperative holding area and the surgical site was marked. The patient was given antibiotics and brought to the operating room. The patient was positioned on the operating room table in a supine position being careful to pad any bony prominences and pressure points. The patient was sedated and intubated by anesthesia in standard fashion. Once the airway and C- spine were stabilized the patient's arms were padded and tucked at her side, with her shoulders gently taped. The head was placed in a donut pad with the neck in good neutral alignment and position. We were careful to maintain the patient's cervical spine and good neutral alignment and position throughout. The patient was prepped and draped in a normal standard fashion. An appropriate timeout and keystone protocol performed. We were able to proceed with the surgery. The local wound area was infiltrated with local anesthetic. An incision was made longitudinally on the right approximately 3-1/2 cm over the appropriate levels from C3 to C7. Dissection was taken down subcutaneously to the level of the platysma which was split in line with its fibers. Dissection was taken with a carotid approach, with the trachea and esophagus medial and the carotid sheath laterally. We dissected down to the anterior surface of the vertebral bodies. Intraoperative x-ray was taken which showed a marker at the appropriate level at C5 6. With the appropriate level positively confirmed, we were able to proceed with discectomy at the appropriate levels. The patient had massive anterior cervical osteophytes and these were taken down tediously from C3 to C7. All of the operative levels were exposed appropriately. The patient had all their twitches back, and there was no evidence of recurrent laryngeal issue. The wound was copiously irrigated and suctioned dry as had been done periodically throughout the case. At the appropriate level/levels, starting at C3 4 than moving to C4 5 and [id number] I established an annulotomy with an 11 blade scalpel. A discectomy was performed with a combination of pituitary rongeurs, curettes, a high-speed bur, and Kerrison rongeurs. The posterior longitudinal ligament was taken down as were any posterior osteophytes. There were large posterior osteophytes at each level which had to be taken down. This gave good central and bilateral foraminal decompression. There is no evidence of any dural tear or leak. The endplates were prepared with a high-speed bur. With the endplates in good parallel position, I was able to size for the appropriate size interbody graft. The wound was irrigated and suctioned dry the graft was prepared and malleted into position. It had good alignment and position with the anterior surface flush with the anterior surface of the vertebral bodies. This was done similarly the appropriate levels. At C5 6, one of the grafts split as I was placing it and I replaced it with a new 9 mm graft With the grafts intact, I was able to measure and contour and appropriate sized plate. The plate was positioned at the midline over the appropriate levels from C3 to C7. Screw holes were established with a hand drill and drill guide. Screws were placed in good alignment and position with excellent bony purchase. They were seated under the locking device. The holes at C6 vertebral body did not line up well and I did not feel that screws would be appropriate that level given the alignment of the graft and the plate. I was able place screws at each of the other levels at C3 C4 C5 and C7 . The construct was checked and found to be stable. Intraoperative x-ray was taken which showed good alignment and po sition of the implants at the appropriate levels. There was no evidence of any dural tear or leak. Good hemostasis was maintained. The wound was copiously irrigated and suctioned dry as had been done periodically throughout the case. The platysma was closed with absorbable suture. The subcutaneous tissue was closed. The subcuticular tissue was closed with absorbable suture. The wound was cleaned and dried and dressed appropriately. A soft cervical collar was placed appropriately. The patient was woken up by anesthesia, extubated, transferred back gently to their hospital bed and brought to the recovery room in good stable condition. The patient will be admitted to the hospital for appropriate postoperative care, medical management and monitoring. We will continue to follow them closely about the postoperative course.
[2022-03-11] MEDS: HYDROmorphone 0.5 MG/0.5 ML SYRINGE IVP PRN ×2 (16:54→17:15)
--- NOTE | 2022-03-11 17:37 | XR ---
EXAMINATION TYPE: XR cervical spine limited DATE OF EXAM: 03/11/2022 COMPARISON: Same date 03/11/2022 HISTORY: Post anterior cervical fusion TECHNIQUE: Lateral cervical spine FINDINGS: Endotracheal tube is present. Prevertebral space has a normal appearance post surgery. Ante rior cervical fusion of C3 through what appears to be C7 is present. Anterior vertebral body spur res ection is been performed. Posterior spinal lamellar line appears intact. Lower cervical spine is limi rosi with overlying shoulders. IMPRESSION: 1. Post anterior cervical fusion.
[2022-03-11] MEDS: SODIUM CHLORIDE 0.9% 1,000 ML IV SCH (18:20)
[2022-03-11] MEDS: GABAPENTIN 300 MG CAP PO SCH (20:07)
[2022-03-11] MEDS: HYDROcodone/APAP 5-325MG 1 EACH TAB PO PRN (20:07)
[2022-03-11] MEDS: SULFAMETHOX-TMP 800-160MG 1 EACH TAB PO SCH (20:08)
[2022-03-11] MEDS: HYDROmorphone 1 MG/ML 1 ML SYRINGE IVP PRN (22:19)
[2022-03-12] MEDS: SODIUM CHLORIDE 0.9% 1,000 ML IV SCH (00:40)
[2022-03-12] MEDS: LACTATED RINGERS 1,000 ML IV SCH (00:41)
[2022-03-12] MEDS: HYDROmorphone 1 MG/ML 1 ML SYRINGE IVP PRN (05:06)
[2022-03-12] MEDS: SULFAMETHOX-TMP 800-160MG 1 EACH TAB PO SCH (06:49)
[2022-03-12] MEDS: GABAPENTIN 300 MG CAP PO SCH (06:49)
--- NOTE | 2022-03-12 07:27 | P.DS ---
Providers Date of admission: 03/12/22 05:24 Attending physician: Charisma Armas Primary care physician: [facility] Course: The patient presented on the day of admission as per their operative note. He has cervical myelopathy with severe stenosis and underwent surgery yesterday for decompression and fusion at C3 4 C4 5 C5 6 and C6 7. He says he is doing better already. He feels his left arm is significantly improved and he can have some sensation his right arm as well. He is complaining of some pain in his neck but it is manageable for him with medicines. He says his swallowing is difficult please able to follow some soft foods. He has voiding freely. Physical Exam The incision site is clean dry and intact. There is no erythema no drainage. There is no purulence no evidence of infection. His neck is soft and supple Abdomen soft and nontender. Chest has good excursion with deep inspiration and expiration. The patient has active and passive range of motion intact at the upper and lower extremities. There is no acute change in neurologic status. He has motion of his arms but he has decreased strength bilaterally particularly to the right which is unchanged from prior to surgery Hospital Course Postoperative day 1 status post anterior cervical decompression and fusion C3 4 C4 5 C5 6 6 7 for his severe cervical stenosis with cervical myelopathy and upper extremity weakness . The patient has been making good progress p ostoperatively. They have completed the prophylactic antibiotics without any signs or symptoms of infection. The patient has been able to advance their diet, and is tolerating diet adequately. The pain was initially controlled with IV medications and is now controlled appropriately with oral medications. The patient has been able to increase their mobilization. The patient has progressed appropriately. I think they are in good stable condition for discharge today. They will be sent home with appropriate prescriptions. I answered their questions to the best of my ability in a language that they can understand and they are agreeable with the plan. They will follow up as directed in approximately 2 weeks or sooner if any problems Patient Condition at Discharge: Fair Plan - Discharge Summary Discharge Rx Participant: Yes New Discharge Prescriptions: New HYDROcodone/APAP 7.5-325MG [Donna 7.5-325] 1 tab PO Q6HR PRN 3 Days #28 tab PRN Reason: Pain No Action Sulfamethox-Tmp 800-160Mg [Bactrim Ds] 1 each PO Q12HR #20 tab Cephalexin [Keflex] 500 mg PO Q6HR #40 cap Gabapentin 300 mg PO BID 3 Days #6 cap Doxycycline [Vibramycin] 100 mg PO BID 21 Days #42 capsule Ibuprofen [Advil] 800 mg PO Q6H PRN PRN Reason: Pain HYDROcodone/APAP 5-325MG [Donna 5] 1 each PO Q6HR PRN 3 Days #12 tab PRN Reason: Pain Discharge Medication List Cephalexin [Keflex] 500 mg PO Q6HR #40 cap 01/08/22 [Rx] Ibuprofen [Advil] 800 mg PO Q6H PRN 01/08/22 [History] Sulfamethox-Tmp 800-160Mg [Bactrim Ds] 1 each PO Q12HR #20 tab 01/08/22 [Rx] Gabapentin 300 mg PO BID 3 Days #6 cap 01/18/22 [Rx] HYDROcodone/APAP 5-325MG [Donna 5] 1 each PO Q6HR PRN 3 Days #12 tab 01/18/22 [Rx] Doxycycline [Vibramycin] 100 mg PO BID 21 Days #42 capsule 01/21/22 [Rx] HYDROcodone/APAP 7.5-325MG [Donna 7.5-325] 1 tab PO Q6HR PRN 3 Days #28 tab 03/12/22 [Rx] Follow up Appointment(s)/Referral(s): Charisma Armas DO [Doctor of Osteopathic Medicine] - 2 Weeks (Or sooner if he has any problems) Discharge Disposition: HOME SELF-CARE
[2022-03-12 07:38] VITALS: BP 122/79; PULSE 90; RESP 18; TEMP 98
[2022-03-12] MEDS: HYDROcodone/APAP 5-325MG 1 EACH TAB PO PRN (07:42)
[2022-03-12] MEDS ORDERED: SENNOSIDES-DOCUSATE SODIUM 1 EACH TAB PO SCH (09:00)
== END 2022-03-12 12:01 | disposition home or self-care (01) ==
LOC: OR 10:45 → 4SSUR 16:30 → OR 03-12 05:24
PROVIDERS: ADMIT Orthopaedic Surgery Orthopaedic Surgery of the Spine; ATTEND Orthopaedic Surgery Orthopaedic Surgery of the Spine
DX: M50.01 Cervical disc disorder with myelopathy, high cervical region (principal); G95.9 Disease of spinal cord, unspecified; G95.89 Other specified diseases of spinal cord; M50.03 Cervical disc disorder with myelopathy, cervicothoracic region; E78.5 Hyperlipidemia, unspecified; R26.81 Unsteadiness on feet; M25.78 Osteophyte, vertebrae; Z79.899 Other long term (current) drug therapy; F17.210 Nicotine dependence, cigarettes, uncomplicated
CPT/HCPCS: 86900; 86901; 86850; 72020; 72040; 22551; 22552 ×2; 22845; 20931; G0378; C1713 ×2; C1762 ×3; J2250; J1100; J2710; J0690 ×3; J2405; J3010; J1170 ×3; J2370; J0330; J2704; J2001